=== PATIENT | male | born 1985 | race Caucasian/White ===

== ENCOUNTER → 2019-10-20 14:41 | Outpatient (BNVA) | payer OTHER, SELFPAY | PROVIDERS: Family Provider Family Medicine; PCP Family Medicine; Visit Provider Nurse Practitioner | DX: Z78.9 Other specified health status (principal) | CPT/HCPCS: 87635 ==

== ENCOUNTER 2021-08-09 08:43 | Outpatient (CLI) | payer OTHER, SELFPAY ==
[2021-08-09 09:08] LABS: Basophils # 0.1 10^3/uL (0.0-0.1); Basophils % 0.5 %; Eosinophils % 0.3 %; Hematocrit 45.5 % (42.0-52.0); Hemoglobin 15.1 g/dL (11.7-16.6); Lymphocytes # 2.3 10^3/uL (0.8-4.8); Lymphocytes % 18.7 %; Mean Corpuscular HGB Conc 33.2 g/dL (30.0-36.0); Mean Corpuscular Hemoglobin 30.7 pg (28.0-34.0); Mean Corpuscular Volume 92.5 fl (80-94); Mean Platelet Volume 11.5 fL (7.4-10.4); Monocytes # 0.9 10^3/uL (0.2-0.9); Monocytes % 7.2 %; Neutrophils # 8.73 10^3/uL (1.8-7.7); Neutrophils % 72.7 %; Nucleated Red Blood Cells % 0 %; Platelet Count 285 10^3/cmm (130-400); Red Blood Count 4.92 10^6/uL (4.1-5.3); Red Cell Distribution Width 13.2 % (12.1-15.1)
[2021-08-09 09:33] LABS: Alanine Aminotransferase 18 U/L (0-41); Albumin Level 4.7 g/dL (3.5-5.2); Alkaline Phosphatase 68 IU/L (40-130); Anion Gap 15.1 (5-19); Aspartate Amino Transferase 18 U/L (0-40); Blood Urea Nitrogen 18 mg/dL (6-20); C Reactive Protein 5.2 mg/L (0.0-4.9); Calcium 8.5 mg/dL (8.5-10.5); Carbon Dioxide 25 mmol/L (22-29); Chloride 103 mmol/L (98-107); Cholesterol 142 mg/dL (0-200); Globulin 2.2 g/dL (1.3-4.6); Glucose 107 mg/dL (65-115); HDL Cholesterol 43 mg/dL (60-100); LDL Cholesterol Calculated 77 mg/dL (50-129); LDL HDL Ratio 1.79 RATIO (0.00-3.22); Osmolality Calculated 290 mOsm/kg (285-295); Potassium 4.1 mmol/L (3.5-5.1); Sodium 139 mmol/L (136-145); Total Bilirubin 0.6 mg/dL (0.15-1.2); Total Protein 6.9 g/dL (6.6-8.7); Triglycerides 109 mg/dL (0-150)
[2021-08-09 09:38] LABS: Erythrocyte Sedimentation Rate 8 mm/hr (0-10)
[2021-08-10 16:41] LABS: Anti-Double Strand DNA AB 1 IU/mL; Jo-1 Antibody <1.0 NEG AI (<1.0 NEG); SM/RNP Antibodies <1.0 NEG AI (<1.0 NEG); SS-B/LA IGG <1.0 NEG AI (<1.0 NEG); Scleroderma Ab(Scl-70) Ab <1.0 NEG AI (<1.0 NEG); Ss-A/Ro Igg <1.0 NEG AI (<1.0 NEG)
== END 2021-08-09 08:44 | disposition home or self-care (01) ==
LOC: LAB 08:45
PROVIDERS: Family Provider Family Medicine; PCP Family Medicine; Visit Provider Family Medicine
DX: M54.9 Dorsalgia, unspecified (principal); Z00.00 Encounter for general adult medical examination without abnormal findings; F41.9 Anxiety disorder, unspecified
CPT/HCPCS: 36415; 80053; 80061; 85025; 85651; 86140; 86225; 86235

== ENCOUNTER → 2021-08-21 10:59 | Outpatient (BNVA) | payer OTHER, SELFPAY | PROVIDERS: Family Provider Family Medicine; PCP Family Medicine; Referring Provider Family Medicine; Visit Provider Orthopaedic Surgery | DX: M54.50 Low back pain, unspecified (principal); M54.6 Pain in thoracic spine; M47.816 Spondylosis without myelopathy or radiculopathy, lumbar region | CPT/HCPCS: 72080 ==

== ENCOUNTER → 2025-03-01 11:01 | Outpatient (BNVA) | payer OTHER, SELFPAY | PROVIDERS: Family Provider Family Medicine; PCP Family Medicine; Visit Provider Family Medicine | DX: M62.830 Muscle spasm of back (principal); S42.309A Unspecified fracture of shaft of humerus, unspecified arm, initial encounter for closed fracture; X58.XXXA Exposure to other specified factors, initial encounter; M79.2 Neuralgia and neuritis, unspecified; G89.29 Other chronic pain; R53.83 Other fatigue; F41.9 Anxiety disorder, unspecified; E03.9 Hypothyroidism, unspecified | CPT/HCPCS: 80053; 80061; 82607; 84443; 85025 ==

== ENCOUNTER 2025-03-02 07:59 | Outpatient (CLI) | payer OTHER, SELFPAY ==
--- NOTE | 2025-03-02 08:09 | XR_ITS ---
WS: [id number] [id number] REASON FOR EXAM: S42.309A - Unspecified fracture of shaft of humerus, unsp... FINDINGS: Plate and screw fixation of previous remote fracture of the midshaft of the humerus. Fractured screw remnant. Remainder of the surgical appliances intact in proper position and alignment. No bone erosion or periosteal reaction. XR/[place] [id number] IMPRESSION: Postoperative left humerus without abnormality.
== END 2025-03-02 08:00 | disposition home or self-care (01) ==
PROVIDERS: Family Provider Family Medicine; PCP Family Medicine; Visit Provider Family Medicine
DX: S42.302A Unspecified fracture of shaft of humerus, left arm, initial encounter for closed fracture (principal); X58.XXXA Exposure to other specified factors, initial encounter
CPT/HCPCS: 73060